=== PATIENT | female | born 2005 | race Two or more races ===

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

== ENCOUNTER 2025-04-08 17:29 | Emergency (ER) | payer OTHER, SELFPAY ==
[2025-04-08 17:37] VITALS: BP 109/58; PULSE 63; RESP 16; TEMP 36.5; O2SAT 100
--- NOTE | 2025-04-08 18:10 | ED.LOWEXIN ---
HPI - Extremity Injury (Lower) General Chief Complaint: Extremity Injury, Lower Stated Complaint: R Knee Pain Time Seen by Provider: 04/08/25 18:00 Source: patient and RN notes reviewed Mode of arrival: ambulatory Limitations: no limitations History of Present Illness HPI Narrative: 19-year-old female Presents Express Care complaining of injury to right knee last 10 months. Patient reports this is ongoing issue, she was diagnosed with MCL sprain, she had an MRI back in October that was unremarkable. Patient says symptoms have not fully improved, she said she did not follow instructions as directed, she is unsure she saw an orthopedist in the past. Patient over last month has gotten worse, she denies any apparent injury to it, she is a wrestler.. Patient's has been taking Tylenol or ibuprofen with relief. Patient denies any numbness, tingling or any other injuries. Patient denies any significant past medical history. Related Data Allergies Allergy/AdvReac Type Severity Reaction Status Date / Time No Known Allergies Allergy Verified 04/08/25 17:46 Review of Systems Review of Systems: CONSTITUTIONAL: Denies fever, chills, or sweats. EYES: Denies visual changes, redness, or discharge. ENT: Denies rhinorrhea, congestion, sore throat, or otalgia. CARDIOVASCULAR: Denies chest pain, palpitations, or edema. RESPIRATORY: Denies cough or dyspnea. GASTROINTESTINAL: Denies abdominal pain, nausea, vomiting, or diarrhea. GENITOURINARY: Denies dysuria or hematuria. SKIN: Denies rash, wound, or itching. MUSCULOSKELETAL: Denies back pain, joint pain, or myalgia. Positive for right knee pain NEUROLOGIC: Denies headache, numbness, or weakness. PSYCHIATRIC: Denies anxiety or depression. All other systems reviewed are negative, except as documented in HPI. 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 turbinates Asthma Obesity Asthma Surgical History Surgical History H/O elbow surgery No significant past surgical history Family History Family History Father Alcoholism Asthma Mother Diabetes mellitus Depression Sibling Depression Grandparent Diabetes mellitus Hypertension Father Unknown family medical history Mother Diabetes mellitus Social History Social History Social History: Caffeine-energy drinks Smoking status: Never smoker Tobacco type: cigarettes Second hand tobacco smoke exposure: No Alcohol intake: never Substance use: never Substance use type: does not use Living arrangements: with family Occupation/Education: student Gender identity (if verbalized by the patient): Female Spiritual care concerns: No Comments At the time of my signature, I reviewed and agree with the nursing past medical, surgical, social, and family history. There is no relevant family history pertinent to the patient complaint. Exam Narrative: GENERAL: This is a well-nourished, well-developed adult, in no apparent distress. They are non ill-appearing, nontoxic appearing. HEAD: normocephalic, atraumatic. EYES: Sclera clear/white. Vision is grossly intact. Conjunctiva normal. Extraocular movement intact. EARS: External ears normal Hearing grossly intact. NOSE: External nose normal THROAT: Mucous membranes moist NECK: Neck supple CARDIOVASCULAR: Regular rate and rhythm RESPIRATORY: Respiratory rate normal, respiratory effort nonlabored, no respiratory distress NEURO: awake, alert, and oriented to person, place and time. There were no obvious focal neurologic abnormalities. EXTREMITIES: No obvious deformity, injury, swelling, bruising, redness. Normal range of motion. No bony tenderness. Capillary refill less than 3 seconds. Normal sensation. Neurovascular status intact distal injury. No valgus severe laxity. Negative anterior drawer test. Negative apprehension sign. BACK: Nontender without deformity. Course Course Level of Care: Express Care Visit Vital Signs Vital signs: Vital Signs Temperature 97.7 F 04/08/25 17:37 Pulse Rate 63 04/08/25 17:37 Respiratory Rate 16 04/08/25 17:37 Blood Pressure 109/58 L 04/08/25 17:37 Pulse Oximetry 100 04/08/25 17:37 Temperature 97.7 F 04/08/25 17:37 Pulse Rate 63 04/08/25 17:37 Respiratory Rate 16 04/08/25 17:37 Blood Pressure 109/58 L 04/08/25 17:37 Pulse Oximetry 100 04/08/25 17:37 MDM MDM Narrative Medical decision making narrative: Patient says she returns back to school in 2 days. Patient could have aggravated her MCL sprain, no bony tenderness on exam. Patient likely needs a follow-up again with an orthopedist, offered to give her the on-call 1, she says she will be returning out of town in 2 days, informed her to ask around for sports medicine orthopedist in the area where she goes to school to be further evaluated. Patient given Oleg wrap, discussed supportive care and rice therapy. Discussed physical exam findings. Advised supportive measures and signs/symptoms to go to the ER. Pt is appropriate for outpt treatment and f/u. Differential Diagnosis Differential Diagnosis: Knee sprain, knee contusion, knee fracture Critical Care Time Critical Care Time Critical Care Time: No Discharge Plan Discharge Clinical Impression: Injury of knee, right Qualifiers: Encounter type: initial encounter Qualified Code(s): S89.91XA - Unspecified injury of right lower leg, initial encounter Patient Disposition: Home Condition: Stable Instructions: Knee Sprain (ED) Additional Instructions: Rest and elevate the leg; bear weight as tolerated Apply ice or heat 15-20 minute intervals several times a day Keep it wrapped with OLEG or use a knee brace You may take ibuprofen 600 mg to 800 mg every 6-8 hours. Do not exceed more than 800 mg of ibuprofen per dose. Do not exceed more than 3200 mg ibuprofen in a day. You may take up to 1000 mg Tylenol every 6-8 hours. Do not exceed 1000 mg per dose, do exceed more than 4000 mg of Tylenol in a day. Follow up with your orthopedist in 1 week Patient Language: Nigerian Prescriptions: No Action albuterol sulfate 90 mcg/actuation HFA aerosol inhaler 1 puff inhalation Q4H PRN (Reason: shortness of breath or wheezing) Qty: 18 2RF Follow-up/Referrals: Toney Chand DO [Primary Care Provider, Internal Medicine] Stand Alone Forms: Work/School Release IP Time of Disposition: 18:06
== END 2025-04-08 18:16 | disposition home or self-care (01) ==
PROVIDERS: PCP Internal Medicine
DX: S89.91XA Unspecified injury of right lower leg, initial encounter (principal); X58.XXXA Exposure to other specified factors, initial encounter; J45.909 Unspecified asthma, uncomplicated; E66.9 Obesity, unspecified
CPT/HCPCS: 99212; G0463